=== PATIENT | female | born 1995 | race African-American/Black ===

== ENCOUNTER 2018-02-27 20:28 | Emergency (ER) | payer SELFPAY ==
[2018-02-27 20:50] LABS: #Eosinphils 0.1 thou/uL (0.0-0.7); #Lymphocytes 3.1 thou/uL (1.20-3.40); #Monocytes 0.5 thou/uL (0.11-0.59); #Neutrophils 3.1 thou/uL (1.40-6.50); %Basophils 0.1 % (0.0-1.0); %Eosinophils 1.9 % (0.0-10.0); %Lymphocytes 45.8 % (21.0-51.0); %Monocytes 6.7 % (0.0-10.0); %Neutrophils 45.5 % (42.0-75.0); Hemoglobin 10.8 g/dL (12.0-16.0); Mean Corpuscular HGB CONC 31.6 g/dL (32.0-36.0); Mean Corpuscular Hemoglobin 22.6 pg (27.0-31.0); Mean Corpuscular Volume 71.6 fL (78.0-98.0); Mean Platelet Volume 8.6 fL (7.4-10.4); Platelet Count 307 thou/uL (130-400); RBC Distribution Width 16.6 % (11.5-14.5); Red Blood Cell (RBC) Count 4.76 mill/uL (4.20-5.40); White Blood Cell (WBC) Count 6.8 thou/uL (4.8-10.8)
[2018-02-27 21:13] LABS: ALT (SGPT) 10 U/L (8-55); AST (SGOT) 18 U/L (5-34); Albumin 4.5 g/dL (3.5-5.0); Alkaline Phosphatase 78 U/L (40-150); Anion Gap 13 mmol/L (10-20); BUN (Urea Nitrogen) 7 mg/dL (7.0-18.7); Bilirubin, Total 0.2 mg/dL (0.2-1.2); Calc. Creatinine Clearance 0 mL/min (70-130); Calcium 9.7 mg/dL (7.8-10.44); Carbon Dioxide 26 mmol/L (22-29); Chloride 103 mmol/L (98-107); Estimated GFR-MDRD Greater than 90; Globulin 3.7 g/dL (2.4-3.5); Glucose 84 mg/dL (70-105); Protein, Total 8.2 g/dL (6.0-8.3); Sodium 138 mmol/L (136-145)
[2018-02-28 00:13] LABS: Bilirubin Negative (Negative); Blood, Urine Large (Negative); Clarity CLOUDY (Clear); Glucose, Urine (Dipstick) Negative (Negative); Leukocyte Small (Negative); Nitrite Negative (Negative); Pregnancy Test - Urine (BHCG) Negative (Negative); Pregu Control Background? CLEAR/WHITE (CLR/WHITE); Pregu Control Bar Appear? YES (CONTROL BAR); Protein, Urine (Dipstick) Negative (Neg-Trace); Specific Gravity 1.007 (1.002-1.036); Specific Gravity, Urine 1.007 (1.002-1.036); pH, Urine 7.5 (5.0-9.0)
[2018-02-28 00:15] LABS: Bacteria/HPF 1+ HPF (None Seen); Hyaline Casts/LPF 0-3 HYALINE CAST LPF (0-3 Hyaline); Pathc Cast-AUWi Flag 0.14 (0-2.49)
== END 2018-02-28 00:43 | disposition home or self-care (01) ==
LOC: ERS 20:28
DX: R55 Syncope and collapse (principal)
CPT/HCPCS: 36415; 80053; 81003; 81015; 81025; 84484; 85025; 93005

== ENCOUNTER 2019-12-26 15:41 | Day surgery (SDC) | payer OTHER ==
[2019-12-26 16:32] VITALS: BP 122/64; TEMP 98.5; BMI 24.7
[2019-12-26] MEDS ORDERED: hydrALAZINE 20 MG/ML VIAL SLOW IVP PRN (16:47)
--- NOTE | 2019-12-26 16:50 | PDOC.LDHP ---
Labor and Delivery H&P Chief complaint: other (Sent here for BPP from Dr Clay's office (nonreactive NST there)) HPI: 24 yo Living 1 with HX 35 week IUFD in past, here for nonreactive NST with Dr clay. Patient states normal FM, no VB, no LOF. States RUCKER lately and takes tylenol. Review of Systems: complete ROS completed and as per HPI Current gestational age (weeks): 33 (1 day) Dating criteria: last menstrual period Grav: 3 Para: 2 OB History Details: x 2 living 1 Current complications: none Abnormal US findings: No Current medications: pre- vitamins Allergies/Adverse Reactions: Allergies Allergy/AdvReac Type Severity Reaction Status Date / Time No Known Allergies Allergy Unverified 12/26/19 16:35 Social history: none - Physical Exam Vital signs reviewed and normal: yes (122/64 98.5 18) General: NAD Heart: RRR Lungs: CTAB Abdomen: gravid Extremeties: no edema FHT: category 1 [place] contractions every: irritability - Assessment 33 weks 1 day with HX IUFD in past, here for NST - Plan Plan: observation in L&D (NST here reactive. Will complete the eval with BPP. For RUCKER, order CBC and CMP.)
[2019-12-26 17:47] LABS: #Basophils 0.1 thou/uL (0.0-0.2); #Eosinphils 0.1 thou/uL (0.0-0.7); #Lymphocytes 1.6 thou/uL (1.20-3.40); #Monocytes 0.6 thou/uL (0.11-0.59); #Neutrophils 3.2 thou/uL (1.40-6.50); %Basophils 1.3 % (0.0-1.0); %Eosinophils 1.1 % (0.0-10.0); %Lymphocytes 28.8 % (21.0-51.0); %Monocytes 10.4 % (0.0-10.0); %Neutrophils 58.4 % (42.0-75.0); Hemoglobin 10.1 g/dL (12.0-16.0); Mean Corpuscular HGB CONC 34.5 g/dL (32.0-36.0); Mean Corpuscular Hemoglobin 31.7 pg (27.0-31.0); Mean Corpuscular Volume 92.1 fL (78.0-98.0); Mean Platelet Volume 7.1 fL (7.4-10.4); Platelet Count 163 thou/uL (130-400); RBC Distribution Width 11.5 % (11.5-14.5); Red Blood Cell (RBC) Count 3.17 mill/uL (4.20-5.40); White Blood Cell (WBC) Count 5.4 thou/uL (4.8-10.8)
--- NOTE | 2019-12-26 18:09 | PDOC.BPN ---
- Brief Progress Note Encounter Date: 12/26/19 Encounter Time: 18:05 CBC with mild anemia. CMP pending. BPP verbal 11/01 so 01/03 with NST reactive
[2019-12-26 18:10] LABS: ALT (SGPT) 16 U/L (8-55); AST (SGOT) 19 U/L (5-34); Albumin 3.1 g/dL (3.5-5.0); Alkaline Phosphatase 73 U/L (40-110); Anion Gap 10 mmol/L (10-20); BUN (Urea Nitrogen) 5 mg/dL (7.0-18.7); Bilirubin, Total 0.4 mg/dL (0.2-1.2); Calc. Creatinine Clearance 196 mL/min (70-130); Calcium 8.1 mg/dL (7.8-10.44); Carbon Dioxide 22 mmol/L (22-29); Chloride 106 mmol/L (98-107); Estimated GFR-MDRD Greater than 90; Globulin 2.9 g/dL (2.4-3.5); Glucose 88 mg/dL (70-105); Potassium 3.1 mmol/L (3.5-5.1); Sodium 135 mmol/L (136-145)
--- NOTE | 2019-12-26 18:14 | ULT ---
ULTRASOUND BIOPHYSICAL PROFILE: HISTORY: distress FINDINGS: A single live intrauterine gestation is seen. heart rate:133bpm MONA: 15.1 cm Placenta: Posterior without placenta previa OB biophysical profile: tone: 2 breathin movements: 2 Amniotic fluid: 2 IMPRESSION: The ultrasound biophysical profile score is 8 out of 8.
== END 2019-12-26 18:37 | disposition home or self-care (01) ==
LOC: L&D/OP 15:41
PROVIDERS: ATTEND Family Medicine
DX: Z01.89 Encounter for other specified special examinations (principal); O99.013 Anemia complicating pregnancy, third trimester; Z3A.33 33 weeks gestation of pregnancy
CPT/HCPCS: 36415; 76819; 80053; 85025

== ENCOUNTER 2020-01-23 12:42 | Day surgery (SDC) | payer OTHER ==
--- NOTE | 2020-01-23 16:43 | ULT ---
ULTRASOUND BIOPHYSICAL PROFILE: HISTORY: distress FINDINGS: A single live intrauterine gestation is seen. heart rate:145bpm MONA: 9.9 cm Placenta: Left-sided without placenta previa Cervical length: 4 cm OB biophysical profile: tone: 2 breathin movements: 2 Amniotic fluid: 2 IMPRESSION: The ultrasound biophysical profile score is 8 out of 8.
== END 2020-01-23 15:00 | disposition home health service (06) ==
LOC: L&D/OP 12:42
PROVIDERS: ATTEND Family Medicine
DX: Z01.89 Encounter for other specified special examinations (principal); Z3A.00 Weeks of gestation of pregnancy not specified
CPT/HCPCS: 59025; 76819; 99282

== ENCOUNTER 2020-01-30 04:53 | Inpatient (IN) | payer OTHER ==
[2020-01-30] MEDS ORDERED: Lidocaine 1% (PF) 30 ML VIAL SC PRN (05:24)
[2020-01-30] MEDS ORDERED: hydrALAZINE 20 MG/ML VIAL SLOW IVP PRN ×2 (05:24→18:03)
[2020-01-30] MEDS ORDERED: Ondansetron PF 4 MG/2 ML Vial IVP PRN ×3 (05:24→18:03)
[2020-01-30] MEDS ORDERED: Misoprostol 200 MCG TAB PR PRN (05:24)
[2020-01-30] MEDS ORDERED: Diphenoxylate HCl/Atropine Tablet PO PRN (05:24)
[2020-01-30] MEDS ORDERED: Carboprost 250 MCG/ML AMP IM PRN (05:24)
[2020-01-30] MEDS ORDERED: Butorphanol Tartrate 1 MG/ML VIAL SLOW IVP PRN (05:24)
[2020-01-30] MEDS ORDERED: NS / Oxytocin 40 units/1000ml 1,000 ML IV PRN (05:24)
[2020-01-30] MEDS ORDERED: Ibuprofen 800 MG TAB PO PRN (05:24)
[2020-01-30] MEDS ORDERED: HYDROcodone/Acetaminophen 5/325 mg Tablet PO PRN ×2 (05:24→18:03)
[2020-01-30] MEDS ORDERED: Methylergonovine 0.2 MG/ML VIAL IM PRN (05:24)
[2020-01-30] MEDS ORDERED: Promethazine HCl 25 MG/ML VIAL IM PRN ×3 (05:24→18:03)
[2020-01-30 05:29] VITALS: BMI 24.3
[2020-01-30] MEDS ORDERED: NS w/ Oxytocin 10 units 500 ML IV SCH ×2 (05:30)
[2020-01-30] MEDS ORDERED: Penicillin G Potassium 5 MILL.UNITS in Sodium Chloride 0.9% 100 ML IVPB SCH (05:30)
[2020-01-30] MEDS ORDERED: Penicillin G 2.5 MILL.units 2.5 MILL.UNITS in Premix Bag 1 BAG IVPB SCH (05:30)
[2020-01-30] MEDS: Lactated Ringer's 1,000 ML IV SCH ×3 (05:45→12:14)
[2020-01-30] MEDS ORDERED: FLU VACC QS2020-21(6MOS UP)/PF 60 MCG/0.5 ML SYRINGE IM ONE (05:45)
[2020-01-30 06:05] LABS: Hemoglobin 12.2 g/dL (12.0-16.0); Mean Corpuscular HGB CONC 33.2 g/dL (32.0-36.0); Mean Corpuscular Hemoglobin 30.9 pg (27.0-31.0); Mean Corpuscular Volume 93.1 fL (78.0-98.0); Mean Platelet Volume 7.2 fL (7.4-10.4); Platelet Count 164 thou/uL (130-400); Red Blood Cell (RBC) Count 3.95 mill/uL (4.20-5.40); White Blood Cell (WBC) Count 7.7 thou/uL (4.8-10.8)
[2020-01-30] MEDS ORDERED: Fentanyl 4 mcg/Bup 0.1% Cadd 100 ML ONE ×2 (06:14→14:08)
[2020-01-30 06:40] LABS: Syphilis Antibody Nonreactive (Nonreactive); Syphilis Antibody Index 0.17 S/CO (<1.00 Non-Reactive)
[2020-01-30] MEDS ORDERED: EPHEDRINE 25 MG/5 ML SYRINGE SLOW IVP PRN (06:43)
[2020-01-30] MEDS ORDERED: Lactated Ringer's 500 ML IV PRN (06:43)
[2020-01-30] MEDS ORDERED: Acetaminophen 325 MG TAB PO PRN (06:43)
[2020-01-30] MEDS ORDERED: Naloxone HCl 0.4 mg/ml Vial IVP PRN ×2 (06:43)
[2020-01-30] MEDS ORDERED: diphenhydrAMINE 50 MG/ML VIAL IVP PRN (06:43)
[2020-01-30] MEDS ORDERED: Fentanyl 4 mcg/Bupivacaine 0.1% Cassette 100 ML EPIDURAL SCH (06:45)
[2020-01-30] MEDS ORDERED: Communication Order-Pharmacy FS SCH (06:45)
[2020-01-30 06:46] LABS: Hep B Surf Ag Non-Reactive S/CO (NonReactive)
[2020-01-30] MEDS ORDERED: Lidocaine 2% MPF 10 ML AMP (For Epidural Use) ONE ×3 (12:20→16:11)
[2020-01-30] MEDS ORDERED: Azithromycin 500 MG VIAL ONE (14:20)
[2020-01-30] MEDS ORDERED: Oxytocin 10 UNITS/ML VIAL ONE ×2 (14:50→16:18)
[2020-01-30] MEDS ORDERED: Morphine PF 10 MG/10 ML VIAL ONE (14:50)
[2020-01-30] MEDS ORDERED: Ondansetron PF 4 MG/2 ML Vial ONE ×2 (14:50→15:52)
[2020-01-30] MEDS ORDERED: Ketorolac Tromethamine 30 MG/ML VIAL ONE (14:50)
[2020-01-30] MEDS ORDERED: Sterile Water 10 ML ONE (14:51)
[2020-01-30] MEDS ORDERED: PHENYLEPHRINE-NS 100 MCG/ML 10 ML SYRINGE ONE ×2 (14:51→15:52)
[2020-01-30] MEDS ORDERED: ePHEDrine 50 MG/ML VIAL ONE (14:51)
[2020-01-30] MEDS ORDERED: Methylergonovine 0.2 MG/ML VIAL ONE (15:36)
[2020-01-30] MEDS ORDERED: Carboprost 250 MCG/ML AMP ONE (15:36)
[2020-01-30] MEDS ORDERED: Tranexamic Acid 1,000 MG/10 ML VIAL ONE (15:37)
[2020-01-30 16:27] LABS: Amphetamine Not Detected (NotDetected); Barbiturates Screen Not Detected (NotDetected); Benzodiazepine Screen Not Detected (NotDetected); Cocaine Metabolite Screen Not Detected (NotDetected); Medtox Control Line Valid? VALID (VALID); Medtox Reader # READER 4; Methadone Not Detected (NotDetected); Methamphetamine Not Detected (NotDetected); Opiate Screen Not Detected (NotDetected); Oxycodone Screen Not Detected (NotDetected); Phencyclidine (PCP) Not Detected (NotDetected); THC/Cannabinoid Screen Not Detected (NotDetected); Tricyclic Screen Not Detected (NotDetected)
--- NOTE | 2020-01-30 17:09 | PDOC.OPDEL ---
OB Operative/Delivery Note Delivery Dr/Surgeon: Dr. Clay Assist: Dr. Dill Pre-Delivery Diagnosis: active labor, arrest of dilation Procedure/Post Delivery Dx: primary low transverse CS Weeks gestation: 38 (38.1) Anesthesia: epidural - Additional Findings/Plan Placenta delivered: manual removal findings: low transverse hysterotomy with extension Estimated blood loss: 1300 Compilations/Other Findings: Date of Procedure: 01/27/20 Attending Surgeon: Dr. Clay Resident surgeon: Dr. Dill Procedure: primary low transverse caesarean section Preoperative Diagnosis: 1) Term intrauterine 2) Arrest of dilation Postoperative Diagnosis: 1) Term delivered 2) Persistant OP presentation 3) Atonic Post- Hemorrhage Anesthesia: epidural Indications: 24 year old @ 38.1 wks taken for a primary LTCS after being complete since 0700 today, with arrest of dilation. Procedure in Detail: After risks, benefits, and alternatives were explained to the patient, she gave informed consent. Pre-operative antibiotics included ancef 2 g and azithromycin 500 mg. The patient was taken to the operating room and spinal anesthesia was placed. She was placed in the supine position with a left tilt and prepped and draped in usual sterile fashion. A Pfannenstiel incision was made with a scalpel and carried down to the level of the fascia which was sharply nicked. The fascial cut was extended bilaterally bluntly and with curved mayos. The inferior and superior edges of the cut fascial edges were elevated with Debo clamps and the underlying rectus muscles bluntly and sharply dissected free. The recti were divided using blunt dissection. The peritoneum was entered bluntly and retracted manually. The uterus was palpated, and found to have film like adhesions bilaterally around lower uterine segments. A bladder flap was created with Jose and blunt dissection. A large serosal vessel was coagulated with the bovie. Bladder blade was placed. A low transverse score was made with the scalpel and the uterus was entered in the midline with the s calpel. Amniotomy performed with scalpel. Clear fluid was seen. The hysterotomy was extended manually. The infant was noted to be OP presentation and was easily delivered with fundal pressure. was vigorous and crying while mouth and nares were bulb suctioned. Cord clamped after 30 seconds and cut, and grossly normal infant was handed to waiting nurse. Cord blood was obtained. Placenta was manually extracted, found to be intact with 3 vessel cord and discarded. The uterus was externalized and curetted with a dry lap, while damp lap was placed over the fundus. Ring forceps were applied to the hysterotomy edges with extensions R>L for hemostasis and the endometrium was curetted with a dry lap. The hysterotomy was closed with a running locking 0-Monocryl in the usual fashion. During closure, methergine x 1 and hemabate x 2 were ordered for uterine atony. Several interrupted figure-of-8 sutures of 0-Vicryl were placed along the hysterotomy for hemostasis. After this hemostasis was achieved. Seprafilm was placed over the anterior portion of the uterus. The uterus was internalized and hysterotomy was again noted to be hemostatic. The peritoneum was closed with a 3-0 vicryl with running suture. The rectus was evaluated for bleeders, and attended to with bovie. The fascia was closed with a running non-locking 0-PDS suture. The subcutaneous tissue was irrigated and the bleeders were attended to with bovie. The subcutaneous spaced was closed with 3 interrupted 3-0 vicryl. The skin was approximated with colton and a pressure bandage was placed. All counts were correct X3. The patient tolerated the procedure well and was taken to the recovery room in stable condition. QBL: 1300 ml due to uterine atony and heavy bleeding from the hysterotomy edges Time of delivery: 1536 on 01/30/20 Complications: PPH Specimens: cord blood Findings: Grossly normal . Grossly normal placenta with 3 vessel cord. Drains: Stein to gravity draining clear urine Post delivery plan: recovery in LICU
[2020-01-30] MEDS ORDERED: Bisacodyl 10 MG SUPP PR PRN (18:03)
[2020-01-30] MEDS ORDERED: Lanolin Ointment 7 GM TUBE TOP PRN (18:03)
[2020-01-30] MEDS ORDERED: NS / Oxytocin 40 units/1000ml 1,000 ML IV SCH (18:03)
[2020-01-30] MEDS ORDERED: Meperidine HCl/PF 25 MG/ML VIAL IM PRN (18:03)
[2020-01-30] MEDS: diphenhydrAMINE 25 MG CAP PO PRN (20:53)
[2020-01-30] MEDS: Ketorolac Tromethamine 30 MG/ML VIAL IVP SCH (23:19)
[2020-01-30] MEDS: Docusate Calcium (SURFAK) 240 MG CAP PO SCH (23:20)
[2020-01-30] MEDS: Simethicone Chewable 80 MG TAB PO PRN (23:20)
[2020-01-31] MEDS: Ferrous Sulfate 325 MG TAB PO SCH ×3 (00:25→21:00)
[2020-01-31] MEDS: diphenhydrAMINE 25 MG CAP PO PRN ×2 (01:21→05:29)
[2020-01-31] MEDS: Simethicone Chewable 80 MG TAB PO PRN ×2 (05:13→09:23)
[2020-01-31] MEDS: Ketorolac Tromethamine 30 MG/ML VIAL IVP SCH ×3 (05:14→18:23)
[2020-01-31 06:38] LABS: Mean Corpuscular Hemoglobin 32.5 pg (27.0-31.0); Mean Corpuscular Volume 95.5 fL (78.0-98.0); Mean Platelet Volume 7.2 fL (7.4-10.4); Platelet Count 134 thou/uL (130-400); RBC Distribution Width 13.1 % (11.5-14.5); Red Blood Cell (RBC) Count 2.45 mill/uL (4.20-5.40); White Blood Cell (WBC) Count 16.4 thou/uL (4.8-10.8)
[2020-01-31] MEDS ORDERED: Adacel (T-DAP) 0.5 ML SYRINGE IM ONE (09:00)
[2020-01-31] MEDS: Docusate Calcium (SURFAK) 240 MG CAP PO SCH ×2 (09:21→21:00)
[2020-01-31] MEDS: Prenatal Vitamin 1 TAB PO SCH (09:21)
[2020-01-31] MEDS: Ibuprofen 800 MG TAB PO SCH ×2 (13:28→22:00)
[2020-01-31 15:19] LABS: SARS-CoV-2 MS2 Positive; SARS-CoV-2 N Gene Negative; SARS-CoV-2 S Gene Negative; SARS-CoV-2 by NAA Not Detected (NotDetected); SARS-CoV-2 orf1ab Negative
[2020-02-01] MEDS: HYDROcodone/Acetaminophen 5/325 mg Tablet PO PRN ×3 (03:04→20:13)
[2020-02-01] MEDS: Ibuprofen 800 MG TAB PO SCH ×3 (07:33→21:14)
[2020-02-01] MEDS: Prenatal Vitamin 1 TAB PO SCH (09:04)
[2020-02-01] MEDS: Ferrous Sulfate 325 MG TAB PO SCH ×2 (09:04→20:13)
[2020-02-01] MEDS: Docusate Calcium (SURFAK) 240 MG CAP PO SCH ×2 (09:04→20:13)
[2020-02-01] MEDS: Simethicone Chewable 80 MG TAB PO PRN (20:13)
[2020-02-02] MEDS: HYDROcodone/Acetaminophen 5/325 mg Tablet PO PRN ×3 (02:33→13:28)
[2020-02-02] MEDS: Ibuprofen 800 MG TAB PO SCH ×2 (08:13→14:56)
[2020-02-02] MEDS: Docusate Calcium (SURFAK) 240 MG CAP PO SCH (08:14)
[2020-02-02] MEDS: Ferrous Sulfate 325 MG TAB PO SCH (08:14)
[2020-02-02] MEDS: Prenatal Vitamin 1 TAB PO SCH (08:14)
[2020-02-02 08:36] VITALS: BP 99/62; TEMP 98
== END 2020-02-02 16:00 | disposition home or self-care (01) | DRG 787 ==
LOC: L&D/OP 04:53 → L&D 05:24 → 3SW 19:17
PROVIDERS: ADMIT Family Medicine; ATTEND Family Medicine
PROC: 10D00Z1 Extraction of Products of Conception, Low, Open Approach (ICD-10-PCS; principal; 2020-01-27)
DX: O62.2 Other uterine inertia (principal); O72.1 Other immediate postpartum hemorrhage; O99.824 Streptococcus B carrier state complicating childbirth; Z37.0 Single live birth; Z3A.38 38 weeks gestation of pregnancy; Z20.828 Contact with and (suspected) exposure to other viral communicable diseases
CPT/HCPCS: 36415; 51702; 80306; 85027; 85461; 86780; 86850; 86870; 86900; 86901; 86905; 86922; 87340; 87635; 90384; 96372; 99285; J0456; J0690; J1885; J2001; J2210; J2270; J2405; J2590; J3490; Q0163; U0003

== ENCOUNTER 2022-03-08 22:37 | Emergency (ER) | payer OTHER ==
[2022-03-08] MEDS ORDERED: Ketorolac Tromethamine 30 MG/ML VIAL ONE (23:52)
== END 2022-03-09 00:19 | disposition home or self-care (01) ==
LOC: ERS 22:37
DX: K02.9 Dental caries, unspecified (principal)
CPT/HCPCS: 96372; 99282; J1885

== ENCOUNTER 2022-10-17 21:44 | Emergency (ER) | payer OTHER ==
[2022-10-17] MEDS ORDERED: Ondansetron ODT 4 MG TAB ONE (22:01)
[2022-10-17] MEDS ORDERED: Dicyclomine 20 MG TAB ONE (22:01)
== END 2022-10-17 22:34 | disposition home or self-care (01) ==
LOC: ERS 21:44
DX: R11.2 Nausea with vomiting, unspecified (principal); R19.7 Diarrhea, unspecified
CPT/HCPCS: 99283; Q0162

== ENCOUNTER → 2024-01-16 | Emergency (ER) | payer SELFPAY | LOC: ERS 10:44 | DX: Z53.21 Procedure and treatment not carried out due to patient leaving prior to being seen by health care provider (principal) ==